=== PATIENT | female | born 1980 | race Caucasian/White ===

== ENCOUNTER → 2016-11-06 | Outpatient (CLI) | payer OTHER ==
--- NOTE | 2016-11-06 16:31 | MR ---
EXAMINATION TYPE: MR elbow RT wo con DATE OF EXAM: 11/06/2016 3:30 PM COMPARISON: NONE HISTORY: Rt Elbow pain per order. Pain swelling and limited movement for 5 years per patient. Standard multiplanar, multisequence MRI departmental protocol Multiplanar, multisequence images of the right elbow were acquired. Comparison: Right elbow x-ray April 14, 2016. FINDINGS: Exam is noted suboptimal due to repeated patient motion despite multiple times being told n ot to move by technologist. Articulations are maintained. Radial collateral ligament is felt intact a nd within normal limits. There is normal ulnar collateral ligament seen best on coronal image 20. Distal biceps tendon is intact and felt within normal limits. Triceps tendon is intact with attachmen t on olecranon identified. No suspicious muscle edema is present. There is abnormal osseous T2 hyperintense signal involving the medial epicondyle of distal humerus wi th surrounding fluid with partial tear and increased signal. No full-thickness tear is present. Findi ngs are noted best on axial image 16 and coronal image 21. Lateral tendon is felt within normal limits. Ulnar nerve is felt unremarkable in the cubital tunnel s een best on axial image 18. IMPRESSION: MRI findings are consistent with a fairly moderate to severe medial epicondylosis as detailed above
== END | disposition home or self-care (01) ==
LOC: RADMRIMAIN 14:48
PROVIDERS: ATTEND Family Medicine
DX: M25.521 Pain in right elbow (principal)

== ENCOUNTER → 2016-12-16 | Outpatient (CLI) | payer OTHER ==
[2016-12-11 14:20] VITALS: BMI 23.1
[2016-12-16 12:59] VITALS: BP 112/78; PULSE 104; RESP 20; TEMP 98.6
--- NOTE | 2016-12-17 15:57 | P.CONS ---
History of Present Illness - Reason for Consult Consult date: 12/16/16 - History of Present Illness this is the initial consultation visit for this 36 years old female with chronic axial severe right elbow pain, started 4 years ago, patient was evaluated by orthopedic surgeons Dr. Morales and Dr. Quan and she had multiple cortisone injections in her right elbow, with only short-term benefit and she continued to have severe pain in her right elbow associated with restriction of movement, and the pain interfering with her quality of life , she is not able to do any weightbearing on her right upper extremity because of the pain, she denies she's done physical therapy without any significant benefit Past Medical History Past Medical History: No Reported History Additional Past Medical History / Comment(s): RIGHT ELBOW INJURY with rt elbow pain limited use rt arm History of Any Multi-Drug Resistant Organisms: None Reported Past Surgical History: Section, Cholecystectomy, Hysterectomy Additional Past Surgical History / Comment(s): surgery for endometriosis Past Anesthesia/Blood Transfusion Reactions: No Reported Reaction Past Psychological History: Anxiety, Depression Smoking Status: Current some day smoker Past Alcohol Use History: Occasional Additional Past Alcohol Use History / Comment(s): smoker 20+ years 1ppd Past Drug Use History: None Reported - Past Family History Sister(s) Family Medical History: Blood Disorder, CVA/TIA Additional Family Medical History / Comment(s): Factor V Medications and Allergies Home Medications Medication Instructions Recorded Confirmed Type Dextroamphetamine/Amphetamine 20 mg PO BID 03/31/15 12/16/16 History [Adderall] DULoxetine HCL [Cymbalta] 1 tab PO DAILY 01/10/16 12/16/16 History Ibuprofen [Motrin] 800 mg PO QID 01/10/16 12/16/16 History HYDROcodone/APAP 5-325MG [English 1 tab PO DAILY PRN 12/11/16 12/16/16 History 5-325] Nicotine 21Mg/24Hr Patch [Habitrol 1 each TRANSDERM DAILY 12/11/16 12/16/16 History 21Mg/24Hr Patch] Allergies Allergy/AdvReac Type Severity Reaction Status Date / Time morphine AdvReac Rash/Hives Verified 12/11/16 14:09 Physical Exam Social history : smoker , NO ETOH , NO Illegal drugs use . Review of Systems : 1- Constitutional : no chills , no fever , no night sweats , 2- Ears : no ear discharge , no change in hearing 3-Nose, Mouth ,Throat ; no bleeding gums, no sore throat , no epistaxis , 4-Cardiovascular : Denies chest pain, , no orthopnea , no palpitation 5-Respiratory : Denies cough , no dyspnea , no hemoptysis 6-Gastrointestinal :, no change in bowel habits , no coffee- ground emesis . 7-Genitourinary : No hematuria , no discharge , no incontinence, 8-Musculoskeletal : No gait dysfunction , report right elbow pain , 9- Neurological : no ataxia , no tremor , no sezure , 10-Psychatric , no suicidal ideation no hallucination 11- Endocrine : no cold intolerence , no polyuria , no polydypsia , 12-Hematologic : no easy bleeding , no easy brusing , 13-Allergic / immunology : no angioedema , no wheezing ,no allergic rhinitis 14-Integumentary : no brttle nails , no change hair / nails , no foot/leg ulcers . Physical Examinations : 1-Constitutional : Cooperative , not in acute distress . 2-HEENT : nech ; supple , no Lymphadenopathy , no Thyromegaly , :eyes , no icterus, no photophobia . ENT : , normal oropharynx , no Thrush 3- Respiratory : Chest clear to auscultations Bilaterally , no wheezing . 4- Cardiovascular : regular rate and rhythem , S1 , S2 , no S3 , no S4. 5- Gastrointestinal: abdomen soft no tenderness , no organomegally . 6- Genitourinary : Defferred . 7-Integumentary : No cellulitis , no ulcers , normal skin turgor , no cyanotic . 8- neurologic : Cranial nerve II to XII intact , no focal neurological deffecit 9-psychatric : alert , oriented X 3 , appropriate affect , intact judgment and insight . 10-Lymphatic : no Lymphadenopathy. 11- musculoskeltal: normal gait Severe tenderness over the medial aspect of the right medial epicondyle Moderate tenderness over the lateral epicondyle Decreased ability to extend the right elbow, severe pain associated with pronation and supination of the right upper extremity Results Comments: MRI of the right elbow showed the patient had abnormal RCS and medial epicondyle there is partial tear Assessment and Plan Plan: Assessment and plan= right medial epicondylitis, and right lateral epicondylitis. Patient could benefit from physical therapy and I will prescribe TENS unit trial. She could benefit from Voltaren gel, and lidocaine gel prescription for that given, also patient could benefit from right elbow braces prescription for that given She already had multiple injections in her right elbow without any long-term benefit from this is an patient is not a candidate to have any interventional pain management, and she should continue home exercise Patient should continue her pain medication English 5/325 every 6 hours when necessary, and she can follow up with the pain clinic on a when necessary basis Time with Patient: Greater than 30
== END | disposition home or self-care (01) ==
LOC: PNWHC3 12:36
PROVIDERS: ATTEND Specialist
DX: M77.11 Lateral epicondylitis, right elbow (principal); M77.01 Medial epicondylitis, right elbow; F17.200 Nicotine dependence, unspecified, uncomplicated; F41.9 Anxiety disorder, unspecified; F32.9 Major depressive disorder, single episode, unspecified; Z79.1 Long term (current) use of non-steroidal anti-inflammatories (NSAID); Z88.5 Allergy status to narcotic agent; Z79.899 Other long term (current) drug therapy
CPT/HCPCS: 99211

== ENCOUNTER → 2019-05-09 | Outpatient (CLI) | payer OTHER ==
--- NOTE | 2019-05-10 10:52 | MM ---
Reason for exam: screening (asymptomatic). Last mammogram was performed 4 years and 8 months ago. Physical Findings: A clinical breast exam by your physician is recommended on an annual basis and results should be correlated with mammographic findings. MG Screening Mammo w CAD Bilateral CC and MLO view(s) were taken. Prior study comparison: August 24, 2014, bilateral MG diagnostic mammo w CAD [facility]. October 23, 2010, CAD bilateral diagnostic mammogram. The breast tissue is extremely dense which could obscure a lesion on mammography. No suspicious abnormality. No significant changes when compared with prior studies. ASSESSMENT: Negative, BI-RAD 1 RECOMMENDATION: Routine screening mammogram of both breasts in 1 year.
== END | disposition home or self-care (01) ==
LOC: RADMAMWWP 10:10
PROVIDERS: ATTEND Family Medicine
DX: Z12.31 Encounter for screening mammogram for malignant neoplasm of breast (principal)
CPT/HCPCS: 77067

== ENCOUNTER 2019-10-21 04:02 | Emergency (ER) | payer OTHER ==
[2019-10-21] MEDS ORDERED: HYDROcodone/APAP 5-325MG 1 EACH TAB PO STA (04:38)
--- NOTE | 2019-10-21 05:31 | XR ---
EXAMINATION TYPE: XR wrist complete RT DATE OF EXAM: 10/21/2019 COMPARISON: NONE HISTORY: Wrist pain TECHNIQUE: 4 views FINDINGS: Carpal bones appear intact. I see no fracture nor dislocation. IMPRESSION: Negative right wrist exam.
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
[2019-10-21 06:24] VITALS: BP 109/62; PULSE 89; RESP 20; TEMP 98.5
== END 2019-10-21 06:25 | disposition home or self-care (01) ==
LOC: EC 04:02
DX: S00.511A Abrasion of lip, initial encounter (principal); M25.531 Pain in right wrist; K08.89 Other specified disorders of teeth and supporting structures; M79.89 Other specified soft tissue disorders; F17.200 Nicotine dependence, unspecified, uncomplicated; Z88.5 Allergy status to narcotic agent; Y04.2XXA Assault by strike against or bumped into by another person, initial encounter; Y93.89 Activity, other specified; Y92.89 Other specified places as the place of occurrence of the external cause
CPT/HCPCS: 29125; 99284

== ENCOUNTER → 2021-05-20 | Outpatient (CLI) | payer OTHER | END | disposition home or self-care (01) | LOC: LABWHC1 15:43 | PROVIDERS: ATTEND Family Medicine | DX: U07.1 COVID-19 (principal) | CPT/HCPCS: U0003; C9803; U0005 ==

== ENCOUNTER 2021-09-06 19:49 | Inpatient (IN) | payer MEDICAID ==
[2021-09-06] MEDS ORDERED: MAG HYDROX/AL HYDROX/SIMETH 30 ML CUP PO PRN (20:31)
[2021-09-06] MEDS ORDERED: MAGNESIUM HYDROXIDE 2,400 MG/10 ML CUP PO PRN (20:31)
[2021-09-06] MEDS ORDERED: LORazepam 2 MG/ML INJ IM PRN (20:39)
[2021-09-06] MEDS ORDERED: HALOPERIDOL LACTATE 5 MG/ML 1 ML VIAL IM PRN (20:40)
[2021-09-06 21:59] LABS: Basophils % (A) 0 %; Eosinophils # (A) 0.2 k/uL (0-0.7); Eosinophils % (A) 2 %; HCT 44.2 % (34.0-46.0); HGB 14.6 gm/dL (11.4-16.0); Lymphocytes # (A) 2.7 k/uL (1.0-4.8); Lymphocytes % (A) 41 %; MCH 32.7 pg (25.0-35.0); MCHC 33.1 g/dL (31.0-37.0); MCV 98.6 fL (80.0-100.0); Mean Platelet Volume 7.6; Monocytes # (A) 0.3 k/uL (0-1.0); Monocytes % (A) 5 %; Neutrophils # (A) 3.2 k/uL (1.3-7.7); Neutrophils % (A) 50 %; Platelet Count 273 k/uL (150-450); RBC 4.48 m/uL (3.80-5.40); RDW 12.1 % (11.5-15.5); WBC 6.5 k/uL (3.8-10.6)
[2021-09-06 22:15] LABS: ALT 25 U/L (4-34); AST 41 U/L (14-36); African American GFR (CKD) >90 (>60 ml/min/1.73 sqM); Alkaline Phosphatase 71 U/L (38-126); Anion Gap 2 mmol/L; Blood Urea Nitrogen 10 mg/dL (7-17); Calcium 8.7 mg/dL (8.4-10.2); Carbon Dioxide 27 mmol/L (22-30); Chloride 106 mmol/L (98-107); Glucose 114 mg/dL (74-99); Non-African American GFR(CKD) >90 (>60 ml/min/1.73 sqM); Potassium 4.1 mmol/L (3.5-5.1); Sodium 135 mmol/L (137-145); Total Bilirubin 0.5 mg/dL (0.2-1.3); Total Protein 6.5 g/dL (6.3-8.2)
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
[2021-09-07] MEDS: buPROPion SR 150 MG TABLET.ER PO SCH ×4 (09:08→21:05)
[2021-09-07] MEDS: NICOTINE 7MG/24HR PATCH TRANSDERM SCH (09:08)
[2021-09-07] MEDS: LORazepam 1 MG TAB PO PRN ×2 (09:09→20:46)
[2021-09-07] MEDS: ACETAMINOPHEN TAB 325 MG TAB PO PRN (13:50)
[2021-09-07 14:46] LABS: Appearance,Urine Clear (Clear); Bilirubin,Urine Negative (Negative); Blood,Urine Negative (Negative); Color,Urine Yellow; Glucose,Urine (UA) Negative (Negative); Ketones,Urine Negative (Negative); Leukocyte Esterase,Urine Negative (Negative); Nitrite,Urine Negative (Negative); PH, Urine 5.5 (5.0-8.0); Protein,Urine Negative (Negative); Specific Gravity,Urine 1.009 (1.001-1.035); Urobilinogen,Urine <2.0 mg/dL (<2.0)
[2021-09-07 20:21] LABS: LDL Cholesterol,Calculated 46.8 mg/dL (0.0-131.0)
[2021-09-07 22:26] LABS: Urine Alcohol Negative (Negative); Urine Barbiturate Negative (Negative); Urine Cocaine Negative (Negative); Urine Methadone Negative (Negative); Urine Opiates Negative (Negative); Urine Phencyclidine Negative (Negative)
[2021-09-08] MEDS: ACETAMINOPHEN TAB 325 MG TAB PO PRN ×3 (04:47→17:49)
[2021-09-08] MEDS: NICOTINE 7MG/24HR PATCH TRANSDERM SCH (08:51)
[2021-09-08] MEDS: buPROPion SR 150 MG TABLET.ER PO SCH ×2 (08:52→20:54)
[2021-09-08 10:08] VITALS: TEMP 97.9
--- NOTE | 2021-09-08 13:06 | P.PN ---
Progress Note - Text Progress Note Date: 09/08/21 Interval History: Patient was seen wandering the hallways and was directable and agreeable to mica ghotra with ghost writer in the office. Patient spoke vaguely about why she came into the hospital. She states that she has not been handling her stressors very well at home. She claims that multiple "things have been piling up". She states that recently her boyfriend broke up with her and has moved out of the house. She states that she is also been having a lot of stress at work and with her family. She states that she was in a binge drinking episode at work and went into the bathroom and found a bottle of Xanax and overdosed on it. She states that she regretted it immediately and call her daughter. She states that she has a lot of regret and feels sad about what she is put her daughter through. She claims that she is doing better at this time with regards to her mood however is continuing to feel anxious at times. She states that she has been sleeping fairly and has a fair appetite. She claims that she has been going to groups and attending to participate as best as she can. At this time patient denies any suicidal or homical ideations, intent or plan. Patient denies any auditory, visual hallucinations and denies any paranoia or delusions. Patient denies any side effects from the medications and has been compliant with meds. Mental Status Exam: General Appearance: Patient appears to be tall, stated age is alert, directable, and cooperative. Behavior: Patient is calmly seated without any agitated behavior. Attempts to cooperate Speech: Patient's speech is fluent and nonpressured. Mood/Affect: Mood is depressed and anxious yet improving mildly, affect is congruent and constricted. Suicidality/Homicidality: Patient denies having any suicidal or homicidal ideation intent or plan. Perceptions: Patient denies any visual hallucinations and denies any auditory hallucinations Though content/process: There is no evidence of any delusional thought content and thought process is linear and goal-directed. Focused on discharge. Vague at times. Memory and concentration: AOX3, grossly intact for the purposes of this session Judgment and insight: Improving mildly Assessment Adjustment disorder with mixed emotional features Major depressive disorder acute Alcohol use disorder Cannabis use disorder Personality disorder NOS nicotine dependence Plan: -Patient continues to meet criteria for inpatient psychiatric admission for symptom stabilization and safety. Patient has signed adult voluntary form and medication consent and was placed in patient's chart. -Medications: Can continue with Wellbutrin SR 150 mg twice a day for mood. Started Zoloft 50 mg daily for mood/anxiety. -When necessary Ativan and Haldol for agitation/aggression. -NRT - nicotine patch -SW on board for discharge planning. Encouraged the patient to participate in milieu. Likely discharge tomorrow.
[2021-09-08] MEDS: SERTRALINE 50 MG TAB PO SCH (14:53)
[2021-09-08] MEDS: LORazepam 1 MG TAB PO PRN (20:35)
--- NOTE | 2021-09-08 22:16 | CONS ---
CONSULTATION CHIEF COMPLAINT: Major depression. HISTORY OF PRESENT ILLNESS: This lady is moved from the medical side to the psych unit after she overdosed on Xanax. REVIEW OF SYSTEMS: She has had no headaches, chest pain, abdominal pain, nausea, vomiting, etc. Past medical history, family history and personal and social histories are otherwise unremarkable and noncontributory. PHYSICAL EXAMINATION: Blood pressure is 115/73 with a pulse of 80, respirations of 18. She is afebrile. In general, she appeared to be slender in no acute distress. Skin color is normal. Skin is warm, dry. Lymph nodes are not enlarged. Head, ears, eyes, nose, mouth and throat were normal. Neck veins not distended. Thyroid not enlarged. Chest is clear. Cardiac exam is normal. Abdomen is soft, nontender. Extremities: Normal. Neurologically she is normal. IMPRESSION: 1. Major depression. 2. Overdoses of Xanax. RECOMMENDATION: None at this time. Her Adderall will be withheld. MMODL / IJN: [id number] /
[2021-09-09] MEDS: ACETAMINOPHEN TAB 325 MG TAB PO PRN (03:16)
[2021-09-09 03:17] VITALS: BP 120/74; PULSE 100; RESP 18
[2021-09-09] MEDS: buPROPion SR 150 MG TABLET.ER PO SCH (08:12)
[2021-09-09] MEDS: NICOTINE 7MG/24HR PATCH TRANSDERM SCH (08:12)
[2021-09-09] MEDS: SERTRALINE 50 MG TAB PO SCH (08:12)
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
== END 2021-09-09 12:27 | disposition home or self-care (01) | DRG 882 ==
LOC: 3MHU 19:56
PROVIDERS: ADMIT Psychiatry & Neurology Psychiatry; ATTEND Psychiatry & Neurology Psychiatry
DX: F43.23 Adjustment disorder with mixed anxiety and depressed mood (principal); F10.10 Alcohol abuse, uncomplicated; F12.10 Cannabis abuse, uncomplicated; F17.200 Nicotine dependence, unspecified, uncomplicated; F32.9 Major depressive disorder, single episode, unspecified; F60.9 Personality disorder, unspecified; Z79.899 Other long term (current) drug therapy
CPT/HCPCS: 80053; 80061; 80306; 81003; 83036; 84443; 85025

== ENCOUNTER 2022-05-31 14:29 | Emergency (ER) | payer OTHER ==
[2022-05-31 14:39] VITALS: TEMP 98
[2022-05-31] MEDS ORDERED: LIDOCAINE 1% INJ 10MG/ML (20 ML MDV) SQ ONE (16:13)
[2022-05-31] MEDS ORDERED: ONDANSETRON ODT 4 MG TAB PO STA (16:13)
[2022-05-31] MEDS ORDERED: SULFAMETHOX-TMP 800-160MG 1 EACH TAB PO STA (16:13)
[2022-05-31] MEDS ORDERED: HYDROmorphone 1 MG/ML 1 ML SYRINGE IM STA (16:13)
--- NOTE | 2022-05-31 16:19 | ED ---
General Adult HPI - General Chief complaint: Skin/Abscess/Foreign Body Stated complaint: Possible Infection Abd Area Time Seen by Provider: 05/31/22 16:01 Source: patient, RN notes reviewed Mode of arrival: ambulatory Limitations: no limitations - History of Present Illness Initial comments: 41-year-old female presents to emergency department for evaluation of painful reddened area in the suprapubic region. States she had an ingrown hair which she attempted to remove 2 or 3 days ago then woke up this morning with a large firm area surrounding the hair follicle. States there has been no drainage from the site. Did not take anything for pain prior to arrival. States pain worsens with palpation and movement. Denies fever, chills, headache, dizziness, chest pain, shortness of breath, abdominal pain, vomiting, diarrhea, dysuria, or hematuria. - Related Data Home Medications Medication Instructions Recorded Confirmed Ibuprofen [Motrin] 800 mg PO QID PRN 01/10/16 09/06/21 Ergocalciferol (Vitamin D2) 1,250 mcg PO Q30D 09/06/21 09/06/21 [Drisdol (50,000 Iu)] Previous Rx's Medication Instructions Recorded Nicotine 7Mg/24Hr Patch [Habitrol] 1 patch TRANSDERM DAILY 14 Days 09/09/21 patch Sertraline [Zoloft] 50 mg PO DAILY 14 Days tab 09/09/21 buPROPion SR [Wellbutrin SR] 150 mg PO BID 14 Days tablet 09/09/21 Ibuprofen [Motrin] 600 mg PO Q8HR PRN #20 tab 05/31/22 Sulfamethox-Tmp 800-160Mg [Bactrim 1 each PO Q12HR 5 Days #10 tab 05/31/22 Ds] Allergies Allergy/AdvReac Type Severity Reaction Status Date / Time morphine Allergy Rash/Hives Verified 05/31/22 14:39 Review of Systems ROS Statement: Those systems with pertinent positive or pertinent negative responses have been documented in the HPI. ROS Other: All systems not noted in ROS Statement are negative. Past Medical History Past Medical History: No Reported History Additional Past Medical History / Comment(s): tendonitis to right arm History of Any Multi-Drug Resistant Organisms: None Reported Past Surgical History: Section, Cholecystectomy, Hysterectomy Additional Past Surgical History / Comment(s): surgery for endometriosis Past Anesthesia/Blood Transfusion Reactions: No Reported Reaction Past Psychological History: Anxiety, Depression Smoking Status: Current every day smoker Past Alcohol Use History: Occasional Past Drug Use History: Marijuana - Past Family History Sister(s) Family Medical History: Blood Disorder, CVA/TIA Additional Family Medical History / Comment(s): Factor V General Exam Limitations: no limitations (Well-developed, well-nourished female in mild distr ess due to pain. Initial temperature 98.0, pulse 93, respirations 20, blood pressure 109/72, pulse ox 99% on room air.) General appearance: alert, in no apparent distress Respiratory exam: Present: normal lung sounds bilaterally. Absent: respiratory distress, wheezes, rales, rhonchi, stridor Cardiovascular Exam: Present: regular rate, normal rhythm, normal heart sounds. Absent: systolic murmur, diastolic murmur, rubs, gallop, clicks Neurological exam: Present: alert, oriented X3, CN II-XII intact Psychiatric exam: Present: normal affect, normal mood Skin exam: Present: warm, dry, erythema Expanded Type of lesion: Present: abscess (Suprapubic region, left of midline extending toward left groin. Small fluctuant area with surrounding erythema. Significant tenderness upon palpation.) Course Vital Signs 05/31/22 05/31/22 05/31/22 14:37 16:39 18:17 Temperature 98 F Pulse Rate 93 68 60 Respiratory 20 16 16 Rate Blood Pressure 109/72 110/68 120/60 O2 Sat by Pulse 99 98 98 Oximetry Procedures - Incision & Drainage Consent Obtained: verbal consent Indication: abscess Site: other (suprapubic area) Size (cm): 1 Anesthetic Used: lidocaine 1% I&D Cleaning Method: Betadine Sterile Field Used?: Yes Scalpel Used: #11 Needle Aspiration Performed?: Yes Irrigation Performed?: Yes I&D Drainage Obtained: Pus, Blood Culture Obtained?: No Patient Tolerated Procedure: well, no complications Medical Decision Making - Medical Decision Making This is a pleasant 41-year-old female who presents to the emergency department for evaluation of abscess to the suprapubic region. Upon exam, patient appears moderately uncomfortable but in no acute distress. Dilaudid was given for pain, incision and drainage of abscess was performed with moderate amount of purulent bloody drainage. Though uncomfortable, patient tolerated procedure well. She was started on an oral antibiotic and instructed to follow up with her PCP for a recheck. Return parameters were discussed in detail. Patient verbalizes understanding and agrees with this plan. Attending: Eleanor. Disposition Clinical Impression: Abscess, suprapubic Disposition: HOME SELF-CARE Condition: Stable Instructions (If sedation given, give patient instructions): Abscess Incision and Drainage (ED) Additional Instructions: Follow-up with PCP for recheck in 48-72 hours. Take antibiotic as prescribed. Apply warm compress to affected area. Motrin for discomfort. Return to the emergency department with any new, worsening, or concerning symptoms such as fever or chills. Prescriptions: Sulfamethox-Tmp 800-160Mg [Bactrim Ds] 1 each PO Q12HR 5 Days #10 tab Ibuprofen [Motrin] 600 mg PO Q8HR PRN #20 tab PRN Reason: Pain Is patient prescribed a controlled substance at d/c from ED?: No Referrals: Juan Healy MD [Primary Care Provider] - 1-2 days Time of Disposition: 17:54
[2022-05-31] MEDS ORDERED: ACET/COD 300 MG/30 MG STARTER PACK 6 TAB BTL PO STA (17:30)
[2022-05-31 18:07] VITALS: RESP 16
[2022-05-31 18:19] VITALS: BP 120/60; PULSE 60
== END 2022-05-31 18:19 | disposition home or self-care (01) ==
LOC: EC 14:29
DX: L02.211 Cutaneous abscess of abdominal wall (principal); F17.200 Nicotine dependence, unspecified, uncomplicated; Z88.5 Allergy status to narcotic agent
CPT/HCPCS: 10060; 99282; J2001; J1170

== ENCOUNTER → 2023-07-12 | Outpatient (CLI) | payer BC ==
--- NOTE | 2023-07-13 09:20 | CT ---
EXAMINATION TYPE: CT abdomen w con DATE OF EXAM: 07/12/2023 COMPARISON: 06/02/2022 HISTORY: epigastric pain, dysphagia x [address] DLP: 547.4 mGycm Automated exposure control for dose reduction was used. TECHNIQUE: Helical acquisition of images was performed from the lung bases through the top of iliac crest to include entire abdomen. CONTRAST: Performed with Oral Contrast and with IV Contrast, patient injected with 100 cc mL of Isovue 300. FINDINGS: LUNG BASES: No significant abnormality is appreciated. Subcentimeter lymph nodes seen in the cardioph renic angle. LIVER/GB: Postcholecystectomy changes. Within the right lower liver on axial image 19 there is a 5 mm hypodensity too small to characterize but stable from prior exam. Localized area of fatty infiltrati on near the falciform ligament. PANCREAS: No significant abnormality is seen. SPLEEN: No significant abnormality is seen. ADRENALS: Mild thickening of the left adrenal gland. KIDNEYS: No significant abnormality is seen. Extrarenal pelvis on the right. BOWEL: No significant abnormality is seen. Mild distal esophageal wall. LYMPH NODES: No significant abnormality is seen. OSSEOUS STRUCTURES: No significant abnormality is seen. FREE AIR: No free air is visualized. OTHER: Small fat-containing. No hernia. No IMPRESSION: POSTCHOLECYSTECTOMY WITH NO DEFINITE ACUTE PROCESS. MILD DISTAL ESOPHAGEAL WALL THICKENING CAN BE ASSOCIATED WITH REFLUX ESOPHAGITIS CORRELATE CLINICALLY .
== END | disposition home or self-care (01) ==
LOC: RADCTMAIN 16:38
PROVIDERS: ATTEND Family Medicine
DX: K22.89 Other specified disease of esophagus (principal); R10.13 Epigastric pain; Z90.49 Acquired absence of other specified parts of digestive tract
CPT/HCPCS: 74160; Q9967

== ENCOUNTER 2023-08-09 14:28 | Emergency (ER) | payer BC, OTHER ==
[2023-08-09 14:51] VITALS: RESP 16; TEMP 98
--- NOTE | 2023-08-09 15:10 | ED ---
General Adult HPI - General Source: patient, RN notes reviewed Mode of arrival: ambulatory Limitations: no limitations <Orin Harden - Last Filed: 08/09/23 15:09> - General Source: patient, RN notes reviewed <Candy Mackenzie - Last Filed: 08/09/23 17:23> - General Chief complaint: Extremity Injury, Lower Stated complaint: right foot injury - History of Present Illness Initial comments: 43 year old female presents to the emergency department for chief complaint of right foot injury. Patient states that earlier today she stepped down off her porch step and twisted her ankle causing her to fall. She reports pain with weight bearing. (Orin Harden) Patient is a 43-year-old female presented ER with chief complaint of right foot injury. Patient states she was stepping off a step up on her porch in her ankle inverted. She has been endorsing pain since. She states it is hurting to walk. Patient does endorse a numbness sensation to the bottom of her foot. Patient denies any other injuries. (Candy Mackenzie) - Related Data Home Medications Medication Instructions Recorded Confirmed Ibuprofen [Motrin] 800 mg PO QID PRN 01/10/16 08/09/23 Ergocalciferol (Vitamin D2) 1,250 mcg PO Q28D 09/06/21 08/09/23 [Drisdol (50,000 Iu)] Dextroamphetamine/Amphetamine 20 mg PO BID@0900,1600 06/02/22 08/09/23 [Adderall] Famotidine 40 mg PO DAILY@0800 08/09/23 08/09/23 Omeprazole 40 mg PO DAILY@0800 08/09/23 08/09/23 Allergies Allergy/AdvReac Type Severity Reaction Status Date / Time morphine Allergy Rash/Hives/Shortness Verified 08/09/23 17:01 of breath Review of Systems ROS Other: All systems not noted in ROS Statement are negative. <Orin Harden - Last Filed: 08/09/23 15:09> ROS Other: All systems not noted in ROS Statement are negative. <Candy Mackenzie - Last Filed: 08/09/23 17:23> ROS Statement: Those systems with pertinent positive or pertinent negative responses have been documented in the HPI. Past Medical History Past Medical History: No Reported History Additional Past Medical History / Comment(s): tendonitis to right arm History of Any Multi-Drug Resistant Organisms: None Reported Past Surgical History: Section, Cholecystectomy, Hysterectomy Additional Past Surgical History / Comment(s): surgery for endometriosis Past Anesthesia/Blood Transfusion Reactions: No Reported Reaction Past Psychological History: Anxiety, Depression Smoking Status: Current every day smoker Past Alcohol Use History: Occasional Past Drug Use History: Marijuana - Past Family History Sister(s) Family Medical History: Blood Disorder, CVA/TIA Additional Family Medical History / Comment(s): Factor V <Orin Harden - Last Filed: 08/09/23 15:09> General Exam Limitations: no limitations <Orin Harden - Last Filed: 08/09/23 15:09> General appearance: alert, in no apparent distress Head exam: Present: atraumatic, normocephalic, normal inspection Respiratory exam: Present: normal lung sounds bilaterally. Absent: respiratory distress, wheezes, rales, rhonchi, stridor Cardiovascular Exam: Present: regular rate, normal rhythm, normal heart sounds. Absent: systolic murmur, diastolic murmur, rubs, gallop, clicks Extremities exam: Present: other (mild edema and ecchymosis on dorsal lateral aspect of right foot/ankle. Tenderness to palpation of dorsal foot. 2+ dorsalis pedis pulse. Sensation is intact. Range of motion is limited due to pain.) Neurological exam: Present: alert, oriented X3, CN II-XII intact Psychiatric exam: Present: normal affect, normal mood Skin exam: Present: warm, dry, intact, normal color. Absent: rash <Candy Mackenzie - Last Filed: 08/09/23 17:23> - General Exam Comments Initial Comments: Visual Physical Exam Vital signs reviewed General: Well-appearing, nontoxic, no acute distress. Head: Normocephalic, atraumatic Eyes: PERRLA, EOMI ENT: Airway patent Chest: Nonlabored breathing Skin: No visual rash, normal skin tone Neuro: Alert and oriented 3 Musculoskeletal: No gross abnormalities (Orin Harden) Course Vital Signs 08/09/23 08/09/23 14:35 15:57 Temperature 98 F Pulse Rate 92 72 Respiratory 16 16 Rate Blood Pressure 125/87 O2 Sat by Pulse 97 96 Oximetry Medical Decision Making <Orin Harden - Last Filed: 08/09/23 15:09> - Radiology Data Radiology results: report reviewed, image reviewed <MeirchetCandy cha - Last Filed: 08/09/23 17:23> - Medical Decision Making Quick note performed by Orin Harden PA-C (Orin Harden) Was pt. sent in by a medical professional or institution (ALEX Edwards, MEDICAL REVIEW SPECIALIST, urgent care, hospital, or senior living...) When possible be specific @ -No Did you speak to anyone other than the patient for history (EMS, parent, family, police, friend...)? What history was obtained from this source @ -No Did you review nursing and triage notes (agree or disagree)? Why? @ -I reviewed and agree with nursing and triage notes Were old charts reviewed (outside hosp., previous admission, EMS record, old EKG, old radiological studies, urgent care reports/EKG's, senior living records)? Report findings @ -No old charts were reviewed Differential Diagnosis (chest pain, altered mental status, abdominal pain women, abdominal pain men, vaginal bleeding, weakness, fever, dyspnea, syncope, headache, dizziness, GI bleed, back pain, seizure, CVA, palpatations, mental health, musculoskeletal)? @ -Differential Musculoskeletal: Muscular strain, contusion, ligament sprain, fracture, arthritis, septic arthritis, bursitis, cellulitis, muscle spasm, nerve compression, DVT, arterial occlusion, herpes zoster, electrolyte abnormality, tumor.... This is not meant to be in all inclusive list EKG interpreted by me (3pts min.). @ -None X-rays interpreted by me (1pt min.). @ -Right ankle x-ray shows no acute fractures or dislocations. Right foot x- ray shows no acute fractures or dislocations. CT interpreted by me (1pt min.). @ -None done U/S interpreted by me (1pt. min.). @ -None done What testing was considered but not performed or refused? (CT, X-rays, U/S, labs)? Why? @ -None What meds were considered but not given or refused? Why? @ -None Did you discuss the management of the patient with other professionals (professionals i.e. Dr., PA, MEDICAL REVIEW SPECIALIST, lab, RT, psych nurse, director social welfare, computer customer support specialist, teacher, security police officer, shelter case manager)? Give summary @ -No Was smoking cessation discussed for >3mins.? @ -No Was critical care preformed (if so, how long)? @ -No Were there social determinants of health that impacted care today? How? (Homelessness, low income, unemployed, alcoholism, drug addiction, transportation, low edu. Level, literacy, decrease access to med. care, [facility], rehab)? @ -No Was there de-escalation of care discussed even if they declined (Discuss DNR or withdrawal of care, Hospice)? DNR status @ -No What co-morbidities impacted this encounter? (DM, HTN, Smoking, COPD, CAD, Cancer, CVA, ARF, Chemo, Hep., AIDS, mental health diagnosis, sleep apnea, morbid obesity)? @ -None Was patient admitted / discharged? Hospital course, mention meds given and route, prescriptions, significant lab abnormalities, going to OR and other pertinent info. @ -Discharged. Patient is a 43-year-old female presented ER with chief complaint of right ankle injury. On exam, patient's vitals are stable. Physical exam is significant for right ankle/foot swelling and ecchymosis to dorsal aspect. Patient was neurovascularly intact. Patient received IM Toradol in the ER for pain control, with improvement on re-evaluation. Right ankle x-ray shows no acute fractures or dislocations. Right foot x-ray shows no acute fractures or dislocations. Patient will be placed in ankle stirrup brace prior to discharge. I discussed with patient to ice and rest and to take [id number] Tylenol and Motrin for pain control. I discussed with patient to follow-up with orthopedics if symptoms persist. Patient will be discharged in stable condition with follow-up to PCP/orthopedics. Patient expressed understanding and agreement with care plan. Undiagnosed new problem with uncertain prognosis? @ -No Drug Therapy requiring intensive monitoring for toxicity (Heparin, Nitro, Insulin, Cardizem)? @ -No Were any procedures done? @ -No Diagnosis/symptom? @ -Ankle sprain Acute, or Chronic, or Acute on Chronic? @ -Acute Uncomplicated (without systemic symptoms) or Complicated (systemic symptoms)? @ -Uncomplicated Side effects of treatment? @ -No Exacerbation, Progression, or Severe Exacerbation? @ -No Poses a threat to life or bodily function? How? (Chest pain, USA, MD, pneumonia, PE, COPD, DKA, ARF, appy, cholecystitis, CVA, Diverticulitis, Homicidal, Suicidal, threat to staff... and all critical care pts) @ -No (Candy Mackenzie) Disposition <Orin Harden - Last Filed: 08/09/23 15:09> Is patient prescribed a controlled substance at d/c from ED?: No Time of Disposition: 17:14 <Candy Mackenzie - Last Filed: 08/09/23 17:23> Clinical Impression: Ankle sprain Disposition: HOME SELF-CARE Condition: Stable Instructions (If sedation given, give patient instructions): Ankle Sprain (ED) Additional Instructions: Please return to the Emergency Department if symptoms worsen or any other concerns. Referrals: Juan Healy MD [Primary Care Provider] - 1-2 days Joey Alexander DO [Doctor of Osteopathic Medicine] - 1-2 days
[2023-08-09] MEDS ORDERED: KETOROLAC 15 MG/ML 1 ML VIAL IM STA (15:57)
[2023-08-09 16:07] VITALS: BP 125/87; PULSE 72
--- NOTE | 2023-08-09 16:37 | XR ---
EXAMINATION TYPE: XR ankle complete RT DATE OF EXAM: 08/09/2023 COMPARISON: NONE HISTORY: Pain FINDINGS: Three views of the ankle demonstrate the ankle mortise to be intact and symmetric. The joint spaces are preserved. The osseous structures are intact. Tiny calcaneal spur. IMPRESSION: 1. No definite acute fracture or dislocation, if symptoms persist follow-up study in 7 to 10 days wou ld be suggested.
--- NOTE | 2023-08-09 16:39 | XR ---
EXAMINATION TYPE: XR foot complete RT DATE OF EXAM: 08/09/2023 COMPARISON: NONE HISTORY: Pain TECHNIQUE: Three views are submitted. FINDINGS: The osseous structures are intact. There is no acute fracture or dislocation. Tiny calcaneal spur. . IMPRESSION: 1. No definite acute fracture or dislocation. A lucency overlying the tuft of the distal phalanx is f elt to be related to soft tissue artifact correlate with point tenderness. If symptoms persist, foll ow-up exam in 7 to 10 days could be obtained.
== END 2023-08-09 17:41 | disposition home or self-care (01) ==
LOC: EC 14:28
DX: S93.401A Sprain of unspecified ligament of right ankle, initial encounter (principal); F41.9 Anxiety disorder, unspecified; F32.A Depression, unspecified; F17.200 Nicotine dependence, unspecified, uncomplicated; F12.90 Cannabis use, unspecified, uncomplicated; Z88.5 Allergy status to narcotic agent; Z79.899 Other long term (current) drug therapy; X50.0XXA Overexertion from strenuous movement or load, initial encounter
CPT/HCPCS: 73610; 73630; 99283; 96372; J1885